=== PATIENT | male | born 1970 | race Caucasian/White ===

== ENCOUNTER 2018-09-29 07:10 | Emergency (ER) | payer MEDICAID ==
[~2018-09-29] VITALS: Ht 198.1 cm; Wt 147.1 kg
[~2018-09-29 07:10] MED LIST: APIX5TAB PO; CARV6.2512 PO
[2018-09-29 07:12] VITALS: BP 145/97
--- NOTE | 2018-09-29 07:37 | NUR ---
STUDIO ARTIST: [facility], AMBULATORY STEADY GAIT
[2018-09-29] MEDS ORDERED: KETOROLAC 30 MG/1 ML IM ONE (08:00)
[2018-09-29] MEDS ORDERED: COLCHICINE 0.6 MG TABLET PO ONE (08:00)
[2018-09-29] MEDS ORDERED: COLCHICINE 0.6 MG TABLET ONE (08:06)
[2018-09-29] MEDS ORDERED: KETOROLAC 30 MG/1 ML ONE (08:06)
--- NOTE | 2018-09-29 08:17 | NUR ---
Provided medicaitons per EMAR. PT appreciative. PT resting on gurney with call light within reach. NADN. No needs expressed at this time.
--- NOTE | 2018-09-29 09:00 | NUR ---
Provided bedside report to ENRIQUE Romero. All questions answered. NADN. No needs expressed at this time.
--- NOTE | 2018-09-29 09:28 | NUR ---
Nurse at bedside giving discharge prescription and instructions
--- NOTE | 2018-09-29 09:31 | NUR ---
FLOAT RN: PT DISCHARGED HOME IN A STABLE CONDITION. DC INSTRUCTIONS WERE DISCUSSED WITH PT. PT VERBALIZED UNDERSTANDING. NO FURTHER QUESTIONS OR CONCERNS WERE EXPRESSED AT THAT TIME. PT AMBULATED WITH RN TO DC DESK STEADY GAIT.
== END 2018-09-29 09:33 | disposition home or self-care (01) ==
LOC: ED 09:25
DX: M13.142 Monoarthritis, not elsewhere classified, left hand (principal); M10.042 Idiopathic gout, left hand; I48.91 Unspecified atrial fibrillation
CPT/HCPCS: 73130; 96372; 99283; J1885

== ENCOUNTER 2018-11-23 10:48 | Emergency (ER) | payer MEDICAID ==
[~2018-11-23] VITALS: Ht 198.1 cm; Wt 146.5 kg
[2018-11-23 11:00] VITALS: BP 127/81
== END 2018-11-23 12:01 | disposition home or self-care (01) ==
LOC: ED 11:58
DX: M13.131 Monoarthritis, not elsewhere classified, right wrist (principal); M10.031 Idiopathic gout, right wrist; M25.531 Pain in right wrist; F17.200 Nicotine dependence, unspecified, uncomplicated; I48.91 Unspecified atrial fibrillation
CPT/HCPCS: 29260; 99283

== ENCOUNTER 2019-04-01 09:12 | Emergency (ER) | payer MEDICAID ==
[~2019-04-01] VITALS: Ht 198.1 cm; Wt 151.3 kg
[2019-04-01 09:13] VITALS: BP 147/99
--- NOTE | 2019-04-01 09:31 | NUR ---
Patient reports rash which started 6 weeks ago received medcation and it improved. recently the rash returned and is now spreading up his left leg. Denies any recent changes to household goods, clothing, etc. NAD noted.
[2019-04-01] MEDS ORDERED: CEFTRIAXONE 1,000 MG ONE (09:38)
[2019-04-01] MEDS ORDERED: CEFTRIAXONE 1,000 MG IM ONE (10:00)
--- NOTE | 2019-04-01 10:25 | NUR ---
Patient resting on gurney, drinking coffee, denies any new complaints at this time.
--- NOTE | 2019-04-01 10:36 | NUR ---
Patient discharged home, discharge instructions provided all questions and concerns addressed. Ambulatory with steady gait. all belongings with patient
== END 2019-04-01 10:47 | disposition home or self-care (01) ==
LOC: ED 10:28
DX: L23.9 Allergic contact dermatitis, unspecified cause (principal); L03.116 Cellulitis of left lower limb; F17.200 Nicotine dependence, unspecified, uncomplicated; M19.90 Unspecified osteoarthritis, unspecified site; I48.91 Unspecified atrial fibrillation
CPT/HCPCS: 96372; 99283; J0696; J7512

== ENCOUNTER 2019-12-07 12:52 | Emergency (ER) | payer SELFPAY ==
[~2019-12-07] VITALS: Ht 198.1 cm; Wt 155.4 kg
[2019-12-07 12:57] VITALS: BP 130/79
--- NOTE | 2019-12-07 13:31 | NUR ---
VEGETABLE TRIMMER: PT AMBULATORY WITH STEADY GAIT TO ROOM AT THIS TIME.
[2019-12-07] MEDS ORDERED: KETOROLAC 60 MG/2 ML ONE (13:47)
[2019-12-07] MEDS ORDERED: KETOROLAC 30 MG/1 ML IM ONE (14:00)
== END 2019-12-07 14:11 | disposition home or self-care (01) ==
LOC: ED 14:02
DX: M10.031 Idiopathic gout, right wrist (principal); I48.91 Unspecified atrial fibrillation
CPT/HCPCS: 96372; 99283; J1885